=== PATIENT | female | born 1945 | race Hispanic/Latino ===

== ENCOUNTER → 2020-05-14 | Outpatient (CLI) | payer MEDICARE | END | disposition home or self-care (01) | LOC: OIH 12:55 | PROVIDERS: ATTEND Internal Medicine | DX: M47.814 Spondylosis without myelopathy or radiculopathy, thoracic region (principal); M48.04 Spinal stenosis, thoracic region; I70.0 Atherosclerosis of aorta; M16.12 Unilateral primary osteoarthritis, left hip; Z90.49 Acquired absence of other specified parts of digestive tract | CPT/HCPCS: 71046; 71100; 72070 ==

== ENCOUNTER → 2020-06-14 | Outpatient (CLI) | payer MEDICARE | END | disposition home or self-care (01) | LOC: OIH 13:34 | PROVIDERS: ATTEND Internal Medicine | DX: I70.0 Atherosclerosis of aorta (principal); I10 Essential (primary) hypertension; M47.814 Spondylosis without myelopathy or radiculopathy, thoracic region | CPT/HCPCS: 71046 ==

== ENCOUNTER → 2021-05-28 | Outpatient (CLI) | payer OTHER | END | disposition home or self-care (01) | LOC: OIH 14:50 | PROVIDERS: ATTEND Internal Medicine | DX: M47.25 Other spondylosis with radiculopathy, thoracolumbar region (principal); M47.26 Other spondylosis with radiculopathy, lumbar region; M48.07 Spinal stenosis, lumbosacral region; M54.6 Pain in thoracic spine; M85.88 Other specified disorders of bone density and structure, other site | CPT/HCPCS: 71100; 72070; 72100 ==

== ENCOUNTER → 2022-03-07 | Outpatient (CLI) | payer OTHER | END | disposition home or self-care (01) | LOC: RAH 14:35 | PROVIDERS: ATTEND Internal Medicine | DX: M47.812 Spondylosis without myelopathy or radiculopathy, cervical region (principal) | CPT/HCPCS: 72040 ==

== ENCOUNTER → 2024-03-25 | Outpatient (CLI) | payer OTHER, MEDICARE | END | disposition home or self-care (01) | LOC: RAH 15:06 | PROVIDERS: ATTEND Internal Medicine | DX: M47.26 Other spondylosis with radiculopathy, lumbar region (principal); M48.07 Spinal stenosis, lumbosacral region | CPT/HCPCS: 72070; 72100 ==

== ENCOUNTER 2024-04-07 08:56 | Day surgery (SDC) | payer OTHER, MEDICARE ==
[2024-04-07] VITALS (10 sets, daily range): BP systolic 85–133; BP diastolic 44–84; PULSE 54–68; RESP 12–17
[~2024-04-07] VITALS: Ht 157.5 cm; Wt 49.0 kg
[2024-04-07] MEDS: 0.9%NACL 1000ML 1,000 ML IV ONE (10:10)
[2024-04-07] MEDS ORDERED: PROPOFOL 10 MG/ML 20ML VIAL IV ONE (11:16)
== END 2024-04-07 12:35 | disposition home or self-care (01) ==
LOC: ENDO 08:56 → DAH 08:56 → ENDO 12:35
PROVIDERS: ATTEND Internal Medicine Gastroenterology
DX: R10.13 Epigastric pain (principal); K29.90 Gastroduodenitis, unspecified, without bleeding; K44.9 Diaphragmatic hernia without obstruction or gangrene; K31.89 Other diseases of stomach and duodenum; R13.10 Dysphagia, unspecified; K59.01 Slow transit constipation; K76.0 Fatty (change of) liver, not elsewhere classified; K21.9 Gastro-esophageal reflux disease without esophagitis; K22.2 Esophageal obstruction; M19.90 Unspecified osteoarthritis, unspecified site; E78.5 Hyperlipidemia, unspecified; J45.909 Unspecified asthma, uncomplicated; I10 Essential (primary) hypertension; E03.9 Hypothyroidism, unspecified; Z83.3 Family history of diabetes mellitus; Z82.49 Family history of ischemic heart disease and other diseases of the circulatory system; Z79.899 Other long term (current) drug therapy; Z90.49 Acquired absence of other specified parts of digestive tract; Z98.890 Other specified postprocedural states
CPT/HCPCS: 43239; J7030; J2704; A4215; A4223; A4222; A4221; A4663; A4606; J3490

== ENCOUNTER → 2024-05-10 | Outpatient (CLI) | payer OTHER, MEDICARE | END | disposition home or self-care (01) | LOC: RAH 10:09 | PROVIDERS: ATTEND Internal Medicine Gastroenterology | DX: K21.9 Gastro-esophageal reflux disease without esophagitis (principal); K44.9 Diaphragmatic hernia without obstruction or gangrene; R13.10 Dysphagia, unspecified | CPT/HCPCS: 74240 ==

== ENCOUNTER → 2024-06-14 | Outpatient (CLI) | payer OTHER, MEDICARE | END | disposition home or self-care (01) | LOC: OIH 16:07 | PROVIDERS: ATTEND Internal Medicine | DX: M17.12 Unilateral primary osteoarthritis, left knee (principal); M25.462 Effusion, left knee | CPT/HCPCS: 73560 ==

== ENCOUNTER 2024-06-28 19:18 | Observation (INO) | payer OTHER, MEDICARE ==
[~2024-06-28] VITALS: Ht 149.9 cm; Wt 46.3 kg
[2024-06-28 20:10] LABS: BASOPHILS # (AUTO) 0.04 K/uL (0.00-0.20); BASOPHILS % (AUTO) 0.5 % (0.0-5.0); EOSINOPHILS # (AUTO) 0.14 K/uL (0.00-0.70); EOSINOPHILS % (AUTO) 1.9 % (0.0-8.0); HEMATOCRIT 41.5 % (36-48); IMMATURE GRANULOCYTE ABSOLUTE 0.04 K/uL (0-1); LYMPHOCYTES # (AUTO) 2.7 K/uL (1.0-4.8); MEAN CORPUSCULAR HEMOGLOBIN 33.4 pg (27.0-33.0); MEAN CORPUSCULAR VOLUME 98.3 fL (79-99); MONOCYTES # (AUTO) 0.7 K/uL (0.1-1.0); MONOCYTES % (AUTO) 9.5 % (3.0-13.0); NEUTROPHILS # (AUTO) 3.9 K/uL (1.8-7.7); NEUTROPHILS % (AUTO) 51.6 % (40.0-77.0); PLATELET COUNT (AUTO) 200 K/uL (130-400); RED BLOOD CELL COUNT(AUTO) 4.22 MIL/uL (4.00-5.50); RED CELL DISTRIBUTION WIDTH 13.8 % (11.0-15.5); WHITE BLOOD COUNT (AUTO) 7.5 K/uL (4.8-10.8)
[2024-06-28 20:16] LABS: APPEARANCE,URINE CLEAR (CLEAR); BILIRUBIN,URINE NEGATIVE (NEGATIVE); COLOR,URINE LIGHT-YELLOW (YELLOW); GLUCOSE, URINE (UA) NEGATIVE (NEGATIVE); KETONES,URINE NEGATIVE (NEGATIVE); LEUKOCYTE ESTERASE ,URINE NEGATIVE Leu/uL (NEGATIVE); NITRATE,URINE NEGATIVE (NEGATIVE); OCCULT BLOOD,URINE NEGATIVE (NEGATIVE); PH,URINE 7.5 (5.0-8.0); PROTEIN,URINE NEGATIVE (NEGATIVE); UROBILINOGEN,URINE 0.2 mg/dL (0.2-1.0)
[2024-06-28 20:20] LABS: ADD UA MICROSCOPIC NO
[2024-06-28 20:28] LABS: AMPHET/METH SCREEN,URINE NEGATIVE (NEGATIVE); BARBITURATE SCREEN, URINE NEGATIVE (NEGATIVE); BENZODIAZEPINES SCREEN,URINE NEGATIVE (NEGATIVE); CANNABINOID SCREEN,URINE NEGATIVE (NEGATIVE); COCAINE SCREEN,URINE NEGATIVE (NEGATIVE); OPIATE SCREEN,URINE POSITIVE (NEGATIVE); PHENCYCLIDINE SCREEN,URINE NEGATIVE (NEGATIVE)
[2024-06-28] MEDS ORDERED: FAMO40TA7 PO (20:38)
[2024-06-28] MEDS ORDERED: PRED20TA3 PO (20:43)
[2024-06-28] MEDS ORDERED: CEFD300C3 PO (20:44)
[2024-06-28] MEDS ORDERED: OMEP40CA21 PO (20:54)
[2024-06-28] MEDS ORDERED: CETI10TA57 PO (20:55)
[2024-06-28] MEDS: NALOXONE IV SCH (20:58)
[2024-06-28 21:09] LABS: POTASSIUM 3.8 mmol/L (3.5-5.1)
[2024-06-28] MEDS ORDERED: HYDR-4068 PO (21:16)
[2024-06-28] MEDS ORDERED: LOSA50TA64 PO (21:17)
[2024-06-28 21:18] LABS: ALBUMIN 3.2 g/dL (3.5-5.0); BILIRUBIN,TOTAL 0.4 mg/dL (0.2-1.0); TOTAL PROTEIN, SERUM 7.5 g/dL (6.0-8.3)
[2024-06-28] MEDS ORDERED: BISA-151 PO (21:18)
[2024-06-28] MEDS ORDERED: ONDA-243 PO (21:19)
[2024-06-28] MEDS ORDERED: FLUC200T12 PO (21:21)
[2024-06-28] MEDS ORDERED: BACL10TA PO (21:22)
[2024-06-28] MEDS ORDERED: OXYB10TA30 PO (21:23)
[2024-06-28] MEDS: ketOROlac 15MG/ML VIAL (15MG/ML) IV ONE (23:41)
[2024-06-29 03:35] VITALS: BP 162/70; PULSE 59; RESP 18; TEMP 98.4
[2024-06-29 07:44] LABS: BASOPHILS # (AUTO) 0.03 K/uL (0.00-0.20); BASOPHILS % (AUTO) 0.4 % (0.0-5.0); EOSINOPHILS # (AUTO) 0.06 K/uL (0.00-0.70); EOSINOPHILS % (AUTO) 0.9 % (0.0-8.0); HEMATOCRIT 35.7 % (36-48); IMMATURE GRANULOCYTE ABSOLUTE 0.03 K/uL (0-1); LYMPHOCYTES # (AUTO) 2.1 K/uL (1.0-4.8); LYMPHOCYTES % (AUTO) 31.5 % (21.0-51.0); MEAN CORPUSCULAR HEMOGLOBIN 33.1 pg (27.0-33.0); MEAN CORPUSCULAR HGB CONC 34.5 g/dL (32.0-36.0); MONOCYTES # (AUTO) 0.7 K/uL (0.1-1.0); MONOCYTES % (AUTO) 10.2 % (3.0-13.0); NEUTROPHILS # (AUTO) 3.8 K/uL (1.8-7.7); NEUTROPHILS % (AUTO) 56.6 % (40.0-77.0); PLATELET COUNT (AUTO) 174 K/uL (130-400); RED BLOOD CELL COUNT(AUTO) 3.72 MIL/uL (4.00-5.50); RED CELL DISTRIBUTION WIDTH 13.4 % (11.0-15.5); WHITE BLOOD COUNT (AUTO) 6.8 K/uL (4.8-10.8)
[2024-06-29 08:00] VITALS: BP 142/67; PULSE 85; RESP 18; TEMP 98.6; O2SAT 97
[2024-06-29 08:00] LABS: ALBUMIN 2.8 g/dL (3.5-5.0); BILIRUBIN,TOTAL 0.5 mg/dL (0.2-1.0); CREATININE 1.1 mg/dL (0.5-1.0); TOTAL PROTEIN, SERUM 6.7 g/dL (6.0-8.3)
[2024-06-29 12:00] VITALS: BP 134/71; PULSE 63; RESP 18; TEMP 99.1
[2024-06-29 16:00] VITALS: BP 132/77; PULSE 65; RESP 18; TEMP 99.5
[2024-06-29] MEDS: acetaMINOPHEN 325 MG TAB PO PRN (18:19)
[2024-06-29 20:00] VITALS: BP 136/70; PULSE 66; RESP 18; TEMP 98.5; O2SAT 100
[2024-06-30] VITALS: BP 117/56; PULSE 60; RESP 18; TEMP 98.3
[2024-06-30 04:00] VITALS: BP 166/79; PULSE 59; RESP 19; TEMP 99
== END 2024-06-30 09:15 | disposition home or self-care (01) ==
LOC: EDH 19:18 → 4CH 06-29 02:52
PROVIDERS: ADMIT Internal Medicine; ATTEND Internal Medicine
DX: T40.2X1A Poisoning by other opioids, accidental (unintentional), initial encounter (principal); R41.82 Altered mental status, unspecified; R53.81 Other malaise; M25.562 Pain in left knee; Z85.858 Personal history of malignant neoplasm of other endocrine glands; Z79.899 Other long term (current) drug therapy; Y92.89 Other specified places as the place of occurrence of the external cause
CPT/HCPCS: 81003; 96374; 96375; 99285; 84484; 80053 ×2; 80305; 82140; 85025 ×2; 36415 ×2; 73562; 70450; 93005; 97161; 97116; J1885; J2310; G0378 ×30